=== PATIENT | male | born 1985 | race Caucasian/White ===

== ENCOUNTER 2022-07-06 14:40 | Emergency (ER) | payer SELFPAY ==
[~2022-07-06] VITALS: Ht 182.9 cm; Wt 99.8 kg
[2022-07-06 14:42] VITALS: BP_SYST 149
--- NOTE | 2022-07-06 14:45 | NUR ---
BROUGHT BACK TO BED #3 AND TRIAGED.REPORT GIVEN TO KIN
[2022-07-06] MEDS ORDERED: DIPHENHYDRAMINE INJ 50 MG/ML VIAL IVP ONE (15:30)
[2022-07-06] MEDS ORDERED: NACL 0.9% 1,000 ML IV ONE (15:30)
[2022-07-06] MEDS ORDERED: METOCLOPRAMIDE HCL 10 MG/2 ML VIAL IVP ONE (15:30)
[2022-07-06] MEDS ORDERED: DEXAMETHASONE SOD PHOSPHATE 10 MG/ML VIAL IVP ONE (15:30)
--- NOTE | 2022-07-06 15:40 | NUR ---
ASSISTING PRIMARY NURSE, IV SL INSERTED. PAIN 10/10-HEADACHE. WILL MEDICATE SOON POSSIBLE.
--- NOTE | 2022-07-06 15:42 | NUR ---
PT TO CT SCAN VIA [facility]
[2022-07-06] MEDS ORDERED: KETOROLAC TROMETHAMINE 30 MG VIAL IVP ONE (16:30)
[2022-07-06] MEDS ORDERED: IBUP-1969 PO (17:23)
[2022-07-06] MEDS ORDERED: TRAM50TA PO (17:23)
[2022-07-06] MEDS ORDERED: METO-290 PO (17:23)
--- NOTE | 2022-07-06 17:50 | NUR ---
Patient given written and verbal discharge instructions and verbalizes understanding. ER MD discussed with patient the results and treatment provided. Patient in stable condition. ID arm band removed. IV catheter removed intact and dressing applied, no active bleeding. Rx of IBUPROFEN,REGLAN, TRAMADOL given. Patient educated on pain management and to follow up with PMD. Pain Scale . Opportunity for questions provided and answered. Medication side effect fact sheet provided.
[2022-07-06 18:11] VITALS: BP_SYST 137
== END 2022-07-06 17:50 | disposition home or self-care (01) ==
LOC: SED 14:40
DX: R51.9 Headache, unspecified (principal); R06.02 Shortness of breath; R11.2 Nausea with vomiting, unspecified; Z79.899 Other long term (current) drug therapy
CPT/HCPCS: 99284; 96374; 96375; 70450; 96361; 76376; J1100; J1200; J1885; J2765; J7030